=== PATIENT | female | born 1955 | race Two or more races ===

== ENCOUNTER → 2021-04-28 | Day surgery (SDC) | payer OTHER ==
[~2021-04-28] VITALS: Ht 157.5 cm; Wt 97.5 kg
[~2021-04-28] MED LIST: BUPIVACAINE 0.25% INJ 50ML VIAL ONE; DexAMETHasone SOD PHOS 10MG/1ML VIAL INJ ONE; DexAMETHasone SOD PHOS 4 MG/1ML SDV INJ ONE; LABETALOL HCL 5 MG/ML 4ML SYRINGE IV PRN; LIDOCAINE 1% HCL (LOCAL ANESTH.) INJ 20ML MDV ONE; MIDAZOLAM HCL 2MG/2ML 2ml VIAL (1mg/ml) IV PRN; MIDAZOLAM HCL 2MG/2ML 2ml VIAL (1mg/ml) ONE; MORPHINE SULFATE 4 MG/ML SYR/VIAL IV PRN; ONDANSETRON HCL 4 MG/2 ML VIAL IV PRN; PROPOFOL 10 MG/ML 20 ML IV ONE; ceFAZolin 1GM/50ML 50 ML IV ONE; ePHEDrine SULFATE 50 MG/ML AMP IV PRN; fentaNYL CITRATE 100 MCG/2 ML VL ONE
[2021-04-28] MEDS: HYDROmorphone HCL 2 MG/ML VL IV PRN ×2 (08:42→08:52)
[2021-04-28 08:58] VITALS: BP 133/64
== END | disposition home or self-care (01) ==
LOC: SUR 07:11
PROVIDERS: ATTEND Orthopaedic Surgery Adult Reconstructive Orthopaedic Surgery
DX: M24.662 Ankylosis, left knee (principal); M25.462 Effusion, left knee; Z20.822 Contact with and (suspected) exposure to COVID-19; Z96.652 Presence of left artificial knee joint
CPT/HCPCS: 20610; 27570; 73560; J0690; J1100; J1170; J2001; J2250; J2704; J3010; J3490; U0003